=== PATIENT | female | born 1980 | race Caucasian/White ===

== ENCOUNTER 2024-08-25 09:57 | Emergency (ER) | payer BC ==
[2024-08-25 10:31] VITALS: BP 139/85; PULSE 64; RESP 20; TEMP 98.6; BMI 27.6
[2024-08-25 11:58] LABS: HEMATOCRIT 41.4 % (32.4-45.2); HEMOGLOBIN 13.6 G/dL (10.7-15.3); MCHC 32.9 g/dl (32.0-36.0); MEAN CELL VOLUME 85.2 fl (80-96); MEAN PLT VOLUME 8.6 fl (7.5-11.1); PLATELET COUNT 253.8 10^3/uL (134-434); RBC 4.86 10^6/uL (3.60-5.2); RDW 14.9 % (11.6-15.6)
[2024-08-25 12:10] LABS: INR 1.03 (0.83-1.09); PROTHROMBIN TIME (PATIENT) 11.7 SEC (9.7-13.0)
[2024-08-25 12:13] LABS: ACTIVATED PTT 31.8 SECONDS (25.2-36.5)
[2024-08-25 12:33] LABS: ALBUMIN 4.4 g/dl (3.4-5.0); BILIRUBIN,TOTAL 0.5 mg/dl (0.2-1); CALCIUM 9.7 mg/dl (8.5-10.1); CREATININE 0.8 mg/dl (0.6-1.3); POTASSIUM 4.1 mmol/L (3.5-5.1); TOT PROT 7.2 g/dl (6.4-8.2)
[2024-08-25] MEDS: ACETAMINOPHEN 1000 MG/100 ML BAG IVPB ONE (13:07)
[2024-08-25] MEDS ORDERED: ACETAMINOPHEN INJECTION 100 ML ONE (13:08)
[2024-08-25] MEDS ORDERED: KETOROLAC TROMETHAMINE 15 MG/ML VIAL ONE (15:00)
[2024-08-25] MEDS: SODIUM CHLORIDE 0.9% 500 ML INFUS.BAG IV ONE (15:04)
[2024-08-25] MEDS: KETOROLAC TROMETHAMINE 15 MG/ML VIAL IVPUSH ONE (15:04)
== END 2024-08-25 16:26 | disposition home or self-care (01) ==
LOC: FER 09:57
DX: R10.31 Right lower quadrant pain (principal)
CPT/HCPCS: 36415; 74176-TC; 76775-TC; 76830-TC; 80053; 81003; 83690; 83735; 84703; 85025; 85610; 85730; 99285-25; J0131